=== PATIENT | female | born 1980 | race Caucasian/White ===

== ENCOUNTER 2017-08-23 14:06 | Inpatient (IN) | payer BC, OTHER ==
[~2017-08-23] VITALS: Ht 154.9 cm; Wt 72.1 kg
--- NOTE | 2017-08-23 15:47 | NUR ---
INTAKE ASSESSMENT RECEIVED PT AOX4. VITAL SIGNS STABLE. PT REPORTS ALLERGIES TO CODEINE, PENICILLIN AND PROCHLORPERAZINE. PT REPORTS NO SEIZURE HISTORY. PT IS NOT INTOXICATED AT THIS TIME. SHE IS STABLE, AMBULATORY, AND ABLE TO ANSWER NECESSARY QUESTIONS. EXPLAINED UNIT POLICIES AND PROTOCOLS AND PT VERBALIZED UNDERSTANDING. WILL ADMIT PT UPON ARRIVAL TO 3RD FLOOR.
[2017-08-23] MEDS ORDERED: HYDR-3026 PO (16:13)
--- NOTE | 2017-08-23 16:14 | NUR ---
ADMISSION NOTE VS: BP 161/112 HR 111 O2 97% RR 15 TEMP 98.1 PAIN 0/10 HEIGHT 5'1 WEIGHT 159 LBS ALLERGIES: PENICILLIN, CODEINE, PROCHLORPERAZINE PATIENT IS A 37 YEAR OLD FEMALE ADMITTED TO [facility] ON 08/23/17 AT 1555. PT IS UNDER THE CARE OF DR MARIE FOR ETOH DEPENDENCE. PT DENIES SUICIDAL OR HOMICIDAL IDEATIONS AT THIS TIME. PT DENIES BEING HOSPITALIZED IN THE LAST 30 DAYS. PT DENIES CHEST PAIN OR SOB. UPON ASSESSMENT, PT SKIN IS INTACT. PT REPORTS FEELING TIRED AND NAUSEATED. CIWA 14. AOX4. PT IS FULL CODE AND REGULAR DIET. PT DENIES SEIZURE HISTORY. PT DENIES HAVING PCP. BREATHING IS EVEN AND UNLABORED. PT AMBULATE WITH STEADY GAIT. PT STATES BOWEL HABITS ARE NORMAL. PT REPORTS [place] HX AT [place], [place], AND [place]. PT REPORTS LIVING WITH BOYFRIEND. HX ANXIETY, DEPRESSION, BIPOLAR, CHRONS .PT SMOKES ABOUT 1/2 PACK OF CIGARETTES PER DAY. DR MARIE HAS ASSESSED PT AND PLACED UNDER HIS CARE. ALL NEEDS MET. PT HAS BEEN ORIENTED TO ROOM, UNIT, STAFF. ALL SAFETY MEASURES IN PLACE PER HOSPITAL POLICY. BED IN LOWEST POSITION, SIDE RAILS X2 AND PADDED, CALL LIGHT WITHIN REACH. WILL MONITOR. SUBSTANCE ABUSE: ETOH 2 PINTS DAILY SINCE MARCH 2017, LAST DRANK 2 PINTS 08/22/17
[2017-08-23 16:25] LABS: *URINE HCG, QUAL NEGATIVE (NEGATIVE)
[2017-08-23 16:30] LABS: *AMPHETAMINE, URINE NEGATIVE (NEGATIVE); *BARBITURATE, URINE NEGATIVE (NEGATIVE); *CANNABINOID, URINE NEGATIVE (NEGATIVE); *COCCAINE, URINE NEGATIVE (NEGATIVE); *OPIATE, URINE NEGATIVE (NEGATIVE); *PHENCYCLIDINE SCREEN,URINE NEGATIVE (NEGATIVE)
--- NOTE | 2017-08-23 16:47 | NUR ---
IV STARTED TO LEFT AC 20 G WITH NS INFUSING AT 125 ML/HR SITE PATENT AND INTACT. TRANSPARENT DRESSING APPLIED. NO DISTRESS.
--- NOTE | 2017-08-23 18:22 | NUR ---
END OF SHIFT NOTE ADMITTED PATIENT THIS SHIFT. PT AOX4. DENIES SUICIDAL OR HOMICIDAL IDEATIONS. PT ADMITTED FOR ETOH DEPENDENCE. CIWA 14 UPON ADMISSION. PATIENT HAS 20 G IV TO LEFT AC WITH NS INFUSING AT 125 ML/HR. PT HAS BEEN ASLEEP IN BED SINCE ADMISSION. NO DISTRESS NOTED. RR EVEN AND UNLABORED. ALL NEEDS MET. SAFETY MEASURES IN PLACE. IV POLE OUT OF WALKWAY. VITALS WNL. ENDORSED TO NIGHT NURSE.
--- NOTE | 2017-08-23 18:22 | NUR ---
START OF SHIFT NOTE : Patient is a 37 year old female admitted to [facility] on 08/23/2017 for ETOH dependence. Patient continue 5 days Ativan Taper with tolerated well without ASE. Patient remains compliant with treatment, medications, and diet regime. Patient reports Allergy to Iodine and Shellfish derived. Patient is on Full Code, Regular Diet, is on Fall and Seizures Precautions. Upon endorsement by day shift nurse, patient is alert and oriented x4, she is fully ambulatory, no VTE chemical prophylaxis required. PMH: Anxiety, Depression, Alcohol Abuse, Bipolar disorder, Chronos. Patient is on IVF NS at 125ml/hr. IV line with 20 G on left AC provided by day shift nurse @1435 is patent, dressing is intact. CIWA 6. VS WNL. Respirations unlabored and even. Patient denies SOB and chest pain. Lungs Sounds are clear bilaterally. Bowel Sounds active in all x4 quadrants. Abdomen is soft and non-tender. PERRLA, brisk capillary refill, control room helper equal and strong. Skin is intact, warm and dry to touch. All needs met. Safety measures on place. Call light within reach, bed in lowest position and locked, padded rails up bilaterally rails up bilaterally. Patient endorsed by day shift nurse. Report received. Will continue to monitor closely. Addendum: 08/24/17 at 2321 by NIGEL OSMAN RN Patient reports Allergy to PCN, Codeine, and Compazine. PMH: Anxiety, Depression, Alcohol Abuse, Bipolar disorder, Crohn's disease.
[2017-08-23 20:00] VITALS: BP 110/62
[2017-08-23 21:11] LABS: BASOPHILS # (AUTO) 0.1 K/uL (0.0-8.0); BASOPHILS % (AUTO) 1.3 % (0.0-2.0); EOSINOPHILS # (AUTO) 0.1 K/uL (0.0-0.7); EOSINOPHILS % (AUTO) 0.8 % (0.0-7.0); HEMATOCRIT 36.2 % (37-47); HEMOGLOBIN 11.9 G/DL (12.0-16.0); LYMPHOCYTES # (AUTO) 2.5 K/UL (0.8-4.8); LYMPHOCYTES % (AUTO) 29.1 % (20.5-51.5); MEAN CORPUSCULAR HEMOGLOBIN 32.1 UUG (27.0-31.0); MEAN CORPUSCULAR HGB CONC 33 g/dL (32.0-37.0); MEAN CORPUSCULAR VOLUME 97.5 FL (81.0-99.0); MONOCYTES # (AUTO) 0.6 K/UL (0.1-1.30); MONOCYTES % (AUTO) 7.4 % (0.0-11.0); NEUTROPHILS # (AUTO) 5.3 K/UL (1.8-8.9); NEUTROPHILS % (AUTO) 61.4 % (38.5-71.5); PLATELET COUNT (AUTO) 220 K/UL (150-450); RED BLOOD CELL COUNT(AUTO) 3.71 MIL/UL (4.2-5.4); WHITE BLOOD COUNT (AUTO) 8.6 K/UL (4.0-11.2)
[2017-08-23 21:19] LABS: ALANINE AMINOTRANSFERASE 23 U/L (14-59); ALKALINE PHOSPHATASE 98 U/L (50-136); AMYLASE 26 U/L (25-115); ASPARTATE AMINOTRANSFERASE 24 U/L (15-37); BILIRUBIN,TOTAL 0.5 mg/dL (0.2-1.0); CARBON DIOXIDE 29 mmol/L (21-32); CHLORIDE 106 mmol/L (98-107); CREATININE 0.8 mg/dL (0.6-1.3); GLUCOSE 104 mg/dL (74-106); MAGNESIUM 1.4 mg/dL (1.8-2.4); POTASSIUM 3.1 mmol/L (3.5-5.1); UREA NITROGEN, BLOOD 10 mg/dL (7-18)
[2017-08-23 21:21] LABS: ETHANOL < 3 MG/DL (0-0)
[2017-08-24] VITALS: BP 110/72
--- NOTE | 2017-08-24 03:50 | NUR ---
PRN Motrin and PRN Zofran Pt called nursing station and requested medication for headache. Pt stated her pain was 9/10. Motrin PRN given as ordered. Pt also reported "dry heaving" and nausea. Zofran PRN given as ordered. Will continue to monitor.
[2017-08-24 04:00] VITALS: BP 131/87
--- NOTE | 2017-08-24 04:50 | NUR ---
RE-ASSESSMENT Patient is sleeping. Respirations even and unlabored. RR 14. PRN Zofran Odt 4 mg 1 tab SL administrated @0350 for nausea was effective. All needs met. Safety measures on place. Call light within reach, bed in lowest position and locked, padded rails up bilaterally rails up bilaterally. Will continue to monitor closely.
--- NOTE | 2017-08-24 04:50 | NUR ---
RE-ASSESSMENT Patient is sleeping. Respirations even and unlabored. RR 14. PRN Motrin 400 mg 1 tab PO administrated @0342 for pain was effective. All needs met. Safety measures on place. Call light within reach, bed in lowest position and locked, padded rails up bilaterally rails up bilaterally. Will continue to monitor closely.
--- NOTE | 2017-08-24 06:59 | NUR ---
END OF SHIFT NOTE : Patient is a 37 year old female admitted to [facility] on 08/23/2017 for ETOH dependence. Patient continue 5 days Ativan Taper with tolerated well without ASE. Patient remains compliant with treatment, medications, and diet regime. Patient reports Allergy to Iodine and Shellfish derived. Patient is on Full Code, Regular Diet, is on Fall and Seizures Precautions. PMH: Anxiety, Depression, Alcohol Abuse, Bipolar disorder, Chronos. Patient is on second bag of IVF NS at 125ml/hr. IV line with 20 G on left AC is patent, dressing is intact. CIWA 6. VS @0400: T: 98.6, BP 131/87, HR 84, RR:16, RA O2Sat: 98%. Generalized body aches pain level: "9/10". Patient denies SI/HI. Respirations unlabored and even. Patient denies SOB and chest pain. Patient denies SOB and chest pain. Skin is intact, warm and dry to touch. PRN Zofran Odt 4 mg 1 tab RAPDIS SL administrated @0350 for nausea, and PRN Motrin 400 mg 1 tab PO administrated @0342 for pain last overnight stocker were effective. Patient slept 6 hours 15 minutes, intake 600 ml, voidedx2. Encourage fluids as tolerated. Encourage to attend activities groups. All needs met. Safety measures on place. Call light within reach, bed in lowest position and locked, padded rails up bilaterally. Patient endorsed to day shift nurse. Report given. Addendum: 08/24/17 at 2321 by NIGEL OSMAN RN Patient reports Allergy to PCN, Codeine,and Compazine. PMH: Anxiety, Depression, Alcohol Abuse, Bipolar disorder, Crohn's disease.
--- NOTE | 2017-08-24 07:50 | NUR ---
START OF SHIFT NOTE Received pt aox4. Patient reports she slept ok and has a stomach ache. She was given PRN Motrin and Zofran per night nurse. She is on a Ativan taper. Last CIWA 6 per night nurse. She slept for 7 hours. Encouraged pt to rest during shift and notify RN if S/S of W/d worsen. Encouraged pt to increase fluid intake to facilitate detox. Will monitor closely and offer help.
[2017-08-24 08:00] VITALS: BP 124/84
[2017-08-24 12:00] VITALS: BP 120/74
--- NOTE | 2017-08-24 13:00 | NUR ---
patient c/o chest pain radiating to left arm. vital signs taken. Bp 135/92 HR 124. notified MD. new orders for EKG and Troponin ordered. Will monitor closely. Addendum: 08/24/17 at 1319 by DEBORAH FRANCO RN EKG showed Sinus Tach. notified .
[2017-08-24 13:28] LABS: BASOPHILS # (AUTO) 0.1 K/uL (0.0-8.0); EOSINOPHILS # (AUTO) 0.1 K/uL (0.0-0.7); EOSINOPHILS % (AUTO) 1.2 % (0.0-7.0); HEMATOCRIT 35.7 % (37-47); HEMOGLOBIN 11.8 G/DL (12.0-16.0); LYMPHOCYTES # (AUTO) 2.8 K/UL (0.8-4.8); MEAN CORPUSCULAR HEMOGLOBIN 32.2 UUG (27.0-31.0); MEAN CORPUSCULAR HGB CONC 33 g/dL (32.0-37.0); MONOCYTES # (AUTO) 0.6 K/UL (0.1-1.30); NEUTROPHILS # (AUTO) 4.7 K/UL (1.8-8.9); NEUTROPHILS % (AUTO) 56.8 % (38.5-71.5); PLATELET COUNT (AUTO) 202 K/UL (150-450); RED BLOOD CELL COUNT(AUTO) 3.65 MIL/UL (4.2-5.4); WHITE BLOOD COUNT (AUTO) 8.3 K/UL (4.0-11.2)
[2017-08-24 13:45] LABS: CREATININE 0.9 mg/dL (0.6-1.3); MAGNESIUM 1.6 mg/dL (1.8-2.4); POTASSIUM 4.6 mmol/L (3.5-5.1)
--- NOTE | 2017-08-24 14:19 | NUR ---
ENDORSED PT TO KARIAN ODOM.
--- NOTE | 2017-08-24 14:20 | NUR ---
Endorsement SBAR report rcv'd from Jeanette, pt is currently sleeping in bed. Will continue to monitor pt.
[2017-08-24 16:40] VITALS: BP 123/87
--- NOTE | 2017-08-24 18:43 | NUR ---
End of shift note Pt was admitted for ETOH dependence. Pt has an allergy to PCN, codeine, and compazine. Pt is a full code and on a regular diet. Pt has a PMHx of anxiety, depression, bipolar d/t and crohn's disease. Pt is on an ativan taper and tolerating well without any ASE. Pt has started to consume PO fluids and food, IVF have been stopped, peripheral IV in place d/t intermittent episodes of nausea. During the shift the pt c/o chest pain, EKG was done, all results WNL. Pt slept for a few hours, upon waking up states that "I feel better". Pt ate 100% of her dinner, 50% of lunch and 25% of breakfast, pt drank 2250ml of fluids, had 4 voids and 1 BM. Pt has no complaints at this time. At 1600 pt had a CIWA of 5. All needs addressed. Will endorse SBAR to oncoming nurse. Addendum: 08/24/17 at 1846 by KARINA CARLOS RN Pt last CIWA of 9
--- NOTE | 2017-08-24 18:43 | NUR ---
START OF SHIFT NOTE : Patient is a 37 year old female admitted to [facility] on 08/23/2017 for ETOH dependence. Patient continue 5 days Ativan Taper with tolerated well without ASE. Patient remains compliant with treatment, medications, and diet regime. Patient reports Allergy to PCN, Codeine,and Compazine. Patient is on Full Code, Regular Diet, is on Fall and Seizures Precautions. Upon endorsement by day shift nurse, patient is alert and oriented x4, she is fully ambulatory, no VTE chemical prophylaxis required. PMH: Anxiety, Depression, Alcohol Abuse, Bipolar disorder, Crohn's disease. CIWA 6. VS WNL. Respirations unlabored and even. Patient denies SOB and chest pain. Lungs Sounds are clear bilaterally. Bowel Sounds active in all x4 quadrants. Abdomen is soft and non-tender. PERRLA, brisk capillary refill, sales performance manager equal and strong. Skin is intact, warm and dry to touch. Peripheral IV on left RAC accidently was removed by patient. No bleeding and skin damage observed. Dressing applied. Patient tolerated well. All needs met. Safety measures on place. Call light within reach, bed in lowest position and locked, padded rails up bilaterally rails up bilaterally. Patient endorsed by day shift nurse. Report received. Will continue to monitor closely.
--- NOTE | 2017-08-24 19:00 | NUR ---
Patient's IV access removed by patient @ 1900, pressure dressing applied, no bleeding noted.
[2017-08-24 20:00] VITALS: BP 133/93
[2017-08-25] VITALS: BP 116/64
[2017-08-25 04:00] VITALS: BP 108/67
--- NOTE | 2017-08-25 07:07 | NUR ---
END OF SHIFT NOTE: Patient is a 37 year old female admitted to [facility] on 08/23/2017 for ETOH dependence. Patient continue 5 days Ativan Taper with tolerated well without ASE. Patient remains compliant with treatment, medications, and diet regime. Patient reports Allergy to PCN, Codeine, and Compazine. Patient is on Full Code, Regular Diet, is on Fall and Seizures Precautions. PMH: Anxiety, Depression, Alcohol Abuse, Bipolar disorder, Crohn's disease. Patient's IV access removed by patient @ 1900, pressure dressing applied, no bleeding noted. Catheter is intact. CIWA 3 @ 0400. VS @0400: T: 98.6, BP 131/87, HR 84, RR:16, RA O2Sat: 98%. Generalized body aches pain level: "9/10". Patient denies SI/HI. Respirations unlabored and even. Patient denies SOB and chest pain. Patient denies SOB and chest pain. Skin is intact, warm and dry to touch. No PRN Medications given last night. Patient slept 8 hours 45 minutes, intake 1,641 ml, voidedx3, stool x2. Encourage fluids as tolerated. Encourage to attend activities groups. All needs met. Safety measures on place. Call light within reach, bed in lowest position and locked, padded rails up bilaterally. Patient endorsed to day shift nurse. Report given.
[2017-08-25 08:00] VITALS: BP 141/98
--- NOTE | 2017-08-25 08:07 | NUR ---
START OF SHIFT NOTE Received report from night nurse, 37 year old female admitted for ETOH dependence. Patient cont on 5 days Ativan Taper with tolerating well. Pt has a PMH of Anxiety, Depression, Alcohol Abuse, Bipolar disorder, Crohn's disease. Per endorsement pt did not received any PRN'S slept for 8 hours, Last CIWA was 3. Received pt in bed awake, alert and oriented x4, educated patient regarding plan of care for the day and medication regimen with good verbal understanding. Safety measures in place. call light kept with in reach, will continue to monitor.
[2017-08-25 12:00] VITALS: BP 140/97
[2017-08-25 16:00] VITALS: BP 137/94
--- NOTE | 2017-08-25 16:00 | NUR ---
ATIVAN REFUSED Patient refused her scheduled Ativan offeredx3 risk and benefits explained, pt verbalized understanding. MD notified. CIWA score was 2.
--- NOTE | 2017-08-25 19:13 | NUR ---
END OF SHIFT NOTE Patient continues with 5 days Ativan taper tolerating well. Patient alert and oriented x4, vital signs were stable during shift. Skin intact warm and dry to touch. Patient encouraged adequate PO fluid intake as tolerated. Patient encouraged to attend group therapies/sessions to learn new coping skills. Last CIWA-2, Safety measures in place. Call light kept within reach. Patient endorsed to night nurse nurse in stable condition.
[2017-08-25 20:00] VITALS: BP 137/95
--- NOTE | 2017-08-25 20:00 | NUR ---
START OF SHIFT Received report from day shift nurse. Pt attended a group meeting and returned to her room after. She is a 37 yo female admitted to [facility] on 08/23 for ETOH dependence. She is A&O x 4 and ambulatory. Allergic to PCN's, codeine, and compazine. PMH of chron's disease, anxiety, depression, and bipolar. On admission she reported using ETOH 2 pints per day. Pt started a 5 day Ativan taper on 08/23. She reports mild anxiety. Pt denies stomach discomfort. Taper due tonight. Fall and seizure precautions in place. Bed is down with call light in Addendum: 08/25/17 at 2110 by HOLLEY WILLIS RN Bed is down with call light in reach.
--- NOTE | 2017-08-25 20:37 | NUR ---
PRN Zofran Pt reports mild nausea w/out vomiting. PRN Zofran administered.
--- NOTE | 2017-08-25 21:30 | NUR ---
PRN Zofran reassessment PRN Zofran effective. Pt reports nausea is relieved.
[2017-08-26] VITALS: BP 121/82
--- NOTE | 2017-08-26 | NUR ---
0000 CIWA deferred CIWA ordered Q4HWA. Pt is lying in bed resting with eyes closed. Vital signs obtained. Safety measures in place.
[2017-08-26 04:07] LABS: HEPATITIS B SURFACE AG Negative (Negative)
--- NOTE | 2017-08-26 07:07 | NUR ---
END OF SHIFT Report provided to day shift nurse. Pt is lying in bed resting. She is a 37 yo female admitted to [facility] on 08/23 for ETOH dependence. She is A&O and ambulatory. Allergies to PCN's, codeine, and compazine. Full code status and on a regular diet. PMH of chron's disease, anxiety, depression, and bipolar. On admission she reported using ETOH 2 pints per day. 5 day Ativan taper started 08/23. PRN Zofran administered. Last CIWA was 4. She drank 2115mL and slept for 7 hours. Fall and seizure precautions in place. Bed is down with call light in reach.
--- NOTE | 2017-08-26 07:57 | NUR ---
START OF SHIFT NOTE Received report from night nurse, 37 year old female admitted for ETOH dependence. Patient cont on 5 days Ativan Taper with tolerating well. Pt has a PMH of Anxiety, Depression, Alcohol Abuse, Bipolar disorder, Crohn's disease. Per endorsement pt received PRN Zofran effective per night nurse, slept for 7 hours, Last CIWA was 4. Received pt in bed awake, alert and oriented x4, educated patient regarding plan of care for the day and medication regimen with good verbal understanding. Safety measures in place. call light kept with in reach, will continue to monitor.
[2017-08-26 08:00] VITALS: BP 103/72
--- NOTE | 2017-08-26 11:55 | NUR ---
CARE ENDORSED All pertinent information given and care endorsed to nurse in charge.
--- NOTE | 2017-08-26 11:56 | NUR ---
Assumed Care: Assumed care for the patient at this time. Patient is a 37 year old female admitted for ETOH dependence who was placed on a 5-day Ativan taper as ordered. No adverse reactions noted. Prior to admission, patient was using 2 pints of ETOH daily since March 2017. Has past medical hx of anxiety, depression and Crohn's Disease. Reports allergies to PCN, codeine and compazine. Last CIWS 4. No PRNS given by previous nurse. On fall and seizure precautions. All needs met and attended. Will continue with current plan of care
[2017-08-26 12:00] VITALS: BP 136/82
[2017-08-26 16:00] VITALS: BP 140/89
[2017-08-26] MEDS ORDERED: HYDR-3026 PO (17:15)
[2017-08-26] MEDS ORDERED: DIVA500T2 PO (17:15)
[2017-08-26] MEDS ORDERED: TRAZ-144 PO (17:15)
[2017-08-26] MEDS ORDERED: GABA-536 PO (17:15)
[2017-08-26] MEDS ORDERED: IBUP-1953 PO (17:15)
--- NOTE | 2017-08-26 18:54 | NUR ---
End of Shift Notes: Patient completed her 5-day Ativan taper as ordered to manage withdrawal symptoms related to alcohol dependence. With discharge plans tomorrow. Patient is tolerated taper well. No adverse reactions noted. VS monitored closely q 4 hours. No signficant abnormalities noted. Withdrawal symptoms were closely monitored. Initial CIWA 4, patient presented with sweating, fine tremors and anxiety. Last CIWA 1 at 1600. Per patient, Ativan has been helping her with her withdrawal symptoms. Requires encouragement to participate in group and activities. All needs met and attended. Will continue to monitor closely and endorse to next shift for continuity of care.
[2017-08-26 20:00] VITALS: BP 134/93
--- NOTE | 2017-08-26 20:05 | NUR ---
START OF SHIFT Received report from day shift nurse. Pt attended a group meeting and returned to her room after. She is a 37 yo female admitted to [facility] on 08/23 for ETOH dependence. She is A&O x4 and ambulatory. Allergic to PCN's, codeine, and reglan. PMH of Crohn's disease, anxiety, depression, and bipolar. On admission she reported drinking ETOH 1 pint per day. Ativan taper completed today and she is scheduled for discharge tomorrow. She reports mild anxiety. No other s/s of withdrawal noted. Fall and seizure precautions in place. Bed is down with call light in reach.
--- NOTE | 2017-08-26 21:04 | NUR ---
PRN Clonidine Pt reports feeling anxious. B/P 134/93 and HR 108. PRN Clonidine administered.
--- NOTE | 2017-08-26 22:20 | NUR ---
PRN Zofran and Trazodone Pt reports mild nausea without vomiting and inability to sleep. PRN Zofran and Trazodone administered. Addendum: 08/27/17 at 1569 by HOLLEY WILLIS RN Correction: Time of note is [id number].
--- NOTE | 2017-08-26 22:21 | NUR ---
PRN Clonidine, Zofran, and Trazodone reassessment PRN Clonidine, Zofran, and Trazodone effective. Pt is lying in bed resting with eyes closed. Respirations even and unlabored. Safety measures in place.
[2017-08-27] VITALS: BP_SYST 104; BP_SYST 118; BP_DIAS 64; BP_DIAS 70
--- NOTE | 2017-08-27 | NUR ---
0000 CIWA deferred CIWA ordered Q4HWA. Pt is lying in bed resting with eyes closed. Vital signs obtained. Safety measures in place.
--- NOTE | 2017-08-27 04:00 | NUR ---
0400 Vitals refused/CIWA deferred Pt refused to be woken for 0400 vitals. She is lying in bed resting with eyes closed. Respirations even and unlabored. CIWA ordered Q4HWA. Safety measures in place.
--- NOTE | 2017-08-27 07:12 | NUR ---
END OF SHIFT Report provided to day shift nurse. Pt is lying in bed resting. She is a 37 yo female admitted to [facility] on 08/23 for ETOH dependence. She is A&O x4 and ambulatory. Allergic to PCN's, codeine, and reglan. PMH of Chron's disease, anxiety, depression, and bipolar. On admission she reported drinking ETOH 1 pint per day. Ativan taper completed yesterday and she is scheduled for discharge today. Last CIWA was 3. PRN Zofran, Clonidine, and Trazodone administered. She drank 1698 and slept for 9 hours. Fall and seizure precautions in place. Bed is down with call light in reach.
--- NOTE | 2017-08-27 07:33 | NUR ---
START OF SHIFT Received report from night nurse. 37 year old female patient admitted on 08/23/17 for ETOH withdrawals. Pt has completed Ativan taper and is medically cleared for discharge. PRN Zofran, Clonidine, and Trazodone administered and effective. Pt is aware of discharge and states she is ready. No acute s/s of withdrawals. Most recent CIWA is 3. Pt slept for 5 hours. Pt tolerates fluid and caloric intake. All needs met at this time. Will continue to monitor.
[2017-08-27 08:06] VITALS: BP 123/82
--- NOTE | 2017-08-27 09:20 | NUR ---
D/C NOTES Pt is A/O x4. V/S remain WNL. Pt denies SI/HI or hallucinations. Pt shows no s/s of acute withdrawal at this time, and is stable. MD has medically cleared pt for d/c . Education on Hepatitis C, smoking cessation and medication side effects provided. Pt verbalizes understanding. All pt belongings are in belonging bag, including prescriptions,and home medications. Refuses PNU vaccination. Pt is being accompanied by [employer] at this time to be transported to rehab. All needs met.
== END 2017-08-27 09:20 | DRG 895 ==
LOC: SRC 14:59
PROVIDERS: ADMIT Internal Medicine; ATTEND Internal Medicine
PROC: HZ2ZZZZ Detoxification Services for Substance Abuse Treatment (ICD-10-PCS; principal; 2017-08-23)
PROC: HZ41ZZZ Group Counseling for Substance Abuse Treatment, Behavioral (ICD-10-PCS; 2017-08-24)
PROC: HZ31ZZZ Individual Counseling for Substance Abuse Treatment, Behavioral (ICD-10-PCS; 2017-08-26)
DX: F10.230 Alcohol dependence with withdrawal, uncomplicated (principal); K50.90 Crohn's disease, unspecified, without complications; I15.9 Secondary hypertension, unspecified; F31.81 Bipolar II disorder; E83.42 Hypomagnesemia; E86.0 Dehydration; Y90.9 Presence of alcohol in blood, level not specified; F17.210 Nicotine dependence, cigarettes, uncomplicated; Z98.84 Bariatric surgery status; F43.10 Post-traumatic stress disorder, unspecified; Z83.3 Family history of diabetes mellitus; Z81.1 Family history of alcohol abuse and dependence; Z79.899 Other long term (current) drug therapy; E87.6 Hypokalemia; D53.9 Nutritional anemia, unspecified; Z91.89 Other specified personal risk factors, not elsewhere classified; F43.0 Acute stress reaction; F13.21 Sedative, hypnotic or anxiolytic dependence, in remission
CPT/HCPCS: 36415; 70030-TC; 71010; 80307; 80346; 83735; 84703; 85025; 86592; 86705; 86803; 87340; 87806; 93005; A4663; G0480; J3411; J7030; Q0162